=== PATIENT | female | born 1970 | race Caucasian/White ===

== ENCOUNTER 2020-04-25 07:58 | Day surgery (SDC) | payer BC ==
[2020-04-20 11:17] LABS: BASOPHILS # (AUTO) 0.1 X10'3 (0-0.2); BASOPHILS % (AUTO) 0.9 % (0-1); EOSINOPHILS # (AUTO) 0.2 X10'3 (0-0.9); EOSINOPHILS % (AUTO) 3.2 % (0-6); LYMPHOCYTES % (AUTO) 35.2 % (21-51); MEAN CORPUSCULAR HEMOGLOBIN 31.1 PG (27.0-31.0); MEAN CORPUSCULAR VOLUME 91.4 FL (78-98); MEAN PLATELET VOLUME 8.9 FL (7.4-10.4); MONOCYTES # (AUTO) 0.4 X10'3 (0-0.9); MONOCYTES % (AUTO) 6.7 % (2-12); NEUTROPHILS # (AUTO) 3.1 X10'3 (1.8-7.7); PRE OP HEMATOCRIT 41.4 % (35.0-45.0); PRE OP HEMOGLOBIN 14.1 g/dL (12.0-16.0); PRE OP PLATELET COUNT 263 X10'3 (140-440); RED BLOOD COUNT 4.54 X10'6 (4.20-5.60); RED CELL DISTRIBUTION WIDTH 13.6 % (11.5-14.5)
[2020-04-20 11:18] LABS: CLARITY,URINE CLEAR (Clear); COLOR,URINE YELLOW (Yellow); GLUCOSE, URINE NEGATIVE (Neg); KETONES,URINE NEGATIVE (Neg); LEUKOCYTE ESTERASE ,URINE NEGATIVE (Neg); NITRITES, URINE NEGATIVE (Neg); OCCULT BLOOD,URINE NEGATIVE (Neg); PH,URINE 6.5 (4.8-8.0); PROTEIN,URINE NEGATIVE (Neg); UROBILINOGEN,URINE 0.2 E.U/dL (0.2-1.0)
[2020-04-20 11:19] LABS: UA COLLECTION TYPE NON-SPECIFIED
[2020-04-20 11:32] LABS: ALBUMIN 3.7 G/DL (3.4-5.0); ALBUMIN/GLOBULIN RATIO 0.9 (1.1-1.5); ALKALINE PHOSPHATASE 197 IU/L (46-116); BLOOD UREA NITROGEN 10 MG/DL (7-18); BUN/CREATININE RATIO 10.8 (6.6-38.0); CALCIUM 9.5 MG/DL (8.5-10.1); CHLORIDE 104 MMOL/L (99-107); CREATININE 0.93 MG/DL (0.40-0.90); PRE OP ANION GAP 6 (8-16); PRE OP AST 87 U/L (10-37); PRE OP BILIRUB, TOTAL 0.6 MG/DL (0.0-1.0); PRE OP GLUCOSE 101 MG/DL (70-104); PRE OP POTASSIUM 3.9 MMOL/L (3.4-5.1); PRE OP SODIUM 137 MMOL/L (135-145); TOTAL CARBON DIOXIDE 27.1 MMOL/L (24-32); TOTAL PROTEIN 7.6 G/DL (6.4-8.2); eGFR 64 ML/MIN
[2020-04-20 11:36] LABS: PRE OP ALT 219 U/L (30-65)
[2020-04-25] VITALS (16 sets, daily range): BP systolic 102–156; BP diastolic 48–94
[~2020-04-25] VITALS: Ht 170.2 cm; Wt 105.9 kg
[~2020-04-25 07:58] MED LIST: MONT10TA21 PO; albuterol 2.5 MG/3 ML nebule NEB ONE; ceFOXitin sod/dextrose 2g/50ml 50 ML IV ONE; famotidine 20mg tablet PO ONE; ringers solution, lacted 1,000 ML IV SCH
[2020-04-25] MEDS ORDERED: ondansetron/PF 4mg/2ml inj IV ONE (11:30)
[2020-04-25] MEDS ORDERED: BUPIVAcaine/PF 2.5 mg/ml (0.25%) 30ml vial ONE (11:32)
[2020-04-25] MEDS ORDERED: sevoflurane 250ml liquid IH ONE (11:50)
[2020-04-25] MEDS ORDERED: fentaNYL /PF 50mcg/ml 5ml ampule ONE (11:53)
[2020-04-25] MEDS ORDERED: midazolam 2 mg/2 ml injection ONE (11:53)
[2020-04-25] MEDS ORDERED: rocuronium 10mg/ml inj IV ONE (12:35)
[2020-04-25] MEDS ORDERED: glycopyrrolate 0.2mg/ml inj ONE (12:35)
[2020-04-25] MEDS ORDERED: ePHEDrine 50MG/ML INJ. ONE (12:35)
[2020-04-25] MEDS ORDERED: propofol inj 20 ML IV ONE (12:35)
[2020-04-25] MEDS ORDERED: neostigmine methylsulfate 1 MG/ML 10ml vial ONE (12:35)
[2020-04-25] MEDS ORDERED: LIDOcaine 2% (20mg/ml) 5ml vial ONE (12:35)
[2020-04-25] MEDS ORDERED: dexamethasone sod phosphate 4mg/ml inj. ONE (12:35)
--- NOTE | 2020-04-25 12:48 | NUR ---
Received from OR via dana, accompanied by Anesthesiologist Darleen and report given by Anesthesiolgist. 20G left forearm LR 100cc/hr. Lap sites with bandaids CDI. VS stable and O2 10L sats 100%. Pain /10. Will monitor closely.
[2020-04-25] MEDS ORDERED: ringers solution, lacted 1,000 ML IV SCH (12:56)
[2020-04-25] MEDS ORDERED: proCHLORperazine 10 MG/2 ml inj IV PRN (13:00)
[2020-04-25] MEDS ORDERED: ondansetron/PF 4mg/2ml inj IV PRN (13:00)
[2020-04-25] MEDS ORDERED: meperidine/PF 25mg/ml syringe IV PRN ×2 (13:00)
[2020-04-25] MEDS ORDERED: morphine 4 MG/ML inj SYRINge IV PRN (13:00)
[2020-04-25] MEDS ORDERED: morphine 2 MG/ML inj. syringe IV PRN (13:00)
[2020-04-25] MEDS: meperidine/PF 25mg/ml syringe IV PRN ×3 (13:02→14:53)
[2020-04-25] MEDS ORDERED: HYDROcodone/acetaminophen 10/325mg tab PO ONE (14:00)
--- NOTE | 2020-04-25 16:18 | NUR ---
Pt discharged to vehicle by wheelchair without incident. Pt no longer feels nausea, or dizziness, states she feels stable and ready to go home, does not want PO pain meds prior to leaving. Pt has script already picked up from pharamcy from MD office. Pt and verbalized understanding of discharge information. Abd wounds remain CDI. All belongings returned to patient.
== END 2020-04-25 16:18 | disposition home or self-care (01) ==
LOC: PAS 07:58
PROVIDERS: ATTEND Surgery
DX: K80.10 Calculus of gallbladder with chronic cholecystitis without obstruction (principal); J45.909 Unspecified asthma, uncomplicated; E78.5 Hyperlipidemia, unspecified; E28.2 Polycystic ovarian syndrome; Z86.718 Personal history of other venous thrombosis and embolism; Z98.890 Other specified postprocedural states; Z90.710 Acquired absence of both cervix and uterus; Z79.899 Other long term (current) drug therapy; Z11.59 Encounter for screening for other viral diseases; Z82.5 Family history of asthma and other chronic lower respiratory diseases; Z83.3 Family history of diabetes mellitus
CPT/HCPCS: 36415; 47562; 80053; 81003; 82948; 85025; 93005; J0694; J1100; J2001; J2175; J2250; J2405; J2704; J2710; J3010; J3490; J7120; U0003; A4215; A4618; A7000

== ENCOUNTER → 2023-07-17 | Outpatient (CLI) | payer BC ==
[~2023-07-17] MED LIST changes: +MONT-47 PO; -MONT10TA21 PO; -albuterol 2.5 MG/3 ML nebule NEB ONE; -ceFOXitin sod/dextrose 2g/50ml 50 ML IV ONE; -famotidine 20mg tablet PO ONE; +iohexol 300mg/ml 100ml inj. ONE; -ringers solution, lacted 1,000 ML IV SCH
== END | disposition home or self-care (01) ==
LOC: RAD 10:46
PROVIDERS: ATTEND Internal Medicine
DX: K65.1 Peritoneal abscess (principal)
CPT/HCPCS: 74177; J3490; Q9967